=== PATIENT | male | born 1945 | race African-American/Black ===

== ENCOUNTER 2025-02-01 07:33 | Inpatient (IN) | payer MEDICARE, MEDICAID ==
[2025-02-01] VITALS (22 sets, daily range): BP systolic 94–154; BP diastolic 55–131; PULSE 87–137; RESP 18–31; TEMP 36.2512–36.9; O2SAT 84–99
[~2025-02-01] VITALS: Ht 170.2 cm; Wt 67.8 kg
[~2025-02-01 07:33] MED LIST: AMLO10TA80 PO; CLON0.2T PO; FURO20TA4 PO; LOSA100T33 PO
[2025-02-01 08:23] LABS: HEMATOCRIT. 41.7 % (42.0-52.0); HEMOGLOBIN. 13.4 g/dL (14.0-18.0); MEAN PLATELET VOLUME 9.1 fl (7.4-10.4); PLATELET 207 x1000/uL (130-400); RED BLOOD CELL COUNT 4.76 mill/uL (4.7-6.1); RED CELL DISTRIBUTION WIDTH 14.7 % (11.6-14.6)
[2025-02-01] MEDS: SODIUM CHLORIDE 0.9% (SEPSIS BOLUS) IV ONE (08:24)
[2025-02-01] MEDS: PIPERACILLIN/TAZO 3.375G/50ML 50 ML IV ONE ×3 (08:25→20:57)
[2025-02-01 08:36] LABS: INR 1.0
[2025-02-01 08:40] LABS: UREA NITROGEN BLOOD 24 mg/dL (9-23)
[2025-02-01 08:42] LABS: ASPARTATE AMINOTRANSFERASE 16 IU/L (<34); BILIRUBIN DIRECT 0.2 mg/dL (<=3.0); BILIRUBIN TOTAL 0.5 mg/dL (0.1-1.0); PROTEIN TOTAL 8.2 g/dL (6.0-8.3)
[2025-02-01 08:51] LABS: CREATININE 1.7 mg/dL (0.6-1.3)
[2025-02-01] MEDS: VANCOMYCIN 1G PREMIX 200 ML IV ONE (09:08)
[2025-02-01] MEDS: IPRATROPIUM/ALBUTEROL 0.5-3(2.5)MG/3ML NEB HHN SCH (09:10)
[2025-02-01] MEDS: ENOXAPARIN 60MG/0.6ML SYR SUBCUT ONE (09:23)
[2025-02-01] MEDS ORDERED: IPRATROPIUM/ALBUTEROL 0.5-3(2.5)MG/3ML NEB HHN PRN (10:30)
[2025-02-01] MEDS ORDERED: ACETAMINOPHEN 325MG TABLET PO PRN (10:30)
[2025-02-01] MEDS ORDERED: DOCUSATE SODIUM 100MG CAPSULE PO PRN (10:30)
[2025-02-01] MEDS ORDERED: ONDANSETRON HCL 4MG/2ML INJ IV PRN (10:30)
[2025-02-01 10:35] LABS: BAND% 23.0 % (1.0-6.0); EOSINOPHILS % MANUAL 1.0 % (0.0-5.0); LYMPHOCYTES % MANUAL 34.0 % (20.0-50.0); MONOCYTES % MANUAL 21.0 % (2.0-8.0); NEUTROPHILS % MANUAL 21.0 % (45.0-75.0); PLATELET ESTIMATE NORMAL
[2025-02-01] MEDS ORDERED: ENOXAPARIN 60MG/0.6ML SYR SUBCUT NR (11:00)
[2025-02-01] MEDS: METHYLPREDNISOLONE SOD SUCC 125MG/2ML (ACT-O-VIAL) ONE (11:02)
[2025-02-01] MEDS: FUROSEMIDE 40MG/4ML VIAL ONE (11:02)
[2025-02-01] MEDS: FUROSEMIDE 40MG/4ML VIAL IVP NR (11:03)
[2025-02-01] MEDS: METHYLPREDNISOLONE SOD SUCC 125MG/2ML (ACT-O-VIAL) IV NR (11:03)
[2025-02-01 11:09] LABS: BG BASE EXCESS -0.9 mmol/L (-2.0-3.0); BG CARBOXYHEMOGLOBIN 1.1 % (0.5-1.5); BG DEOXYHEMOGLOBIN 14.6 % (0.0-5.0); BG FRACTION INSPIRED OXYGEN 40; BG HCO3 ACT 27.5 mmol/L (21.0-28.0); BG METHEMOGLOBIN 0.3 % (0.5-1.5); BG OXYGEN SATURATION 85.2 % (94.0-98.0); BG OXYHEMOGLOBIN 84.0 % (94.0-98.0); BG PCO2 62.1 mmHg (35.0-48.0); BG PH 7.264 (7.350-7.450); BG PO2 55.1 mmHg (83.0-108.0); BG SAMPLE SITE RIGHT RADIAL; BG TOTAL HEMOGLOBIN 14.1 g/dL (13.5-17.5); BG VENT MODE NASAL CANNULA
[2025-02-01] MEDS: IPRATROPIUM/ALBUTEROL 0.5-3(2.5)MG/3ML NEB ONE (11:32)
[2025-02-01] MEDS: IPRATROPIUM/ALBUTEROL 0.5-3(2.5)MG/3ML NEB HHN NR (11:35)
[2025-02-01] MEDS: BUDESONIDE 0.5MG/2ML NEB ONE (11:38)
[2025-02-01] MEDS: PIPERACILLIN/TAZO 3.375G/50ML 50 ML IV NR (11:43)
[2025-02-01] MEDS: BUDESONIDE 0.5MG/2ML NEB HHN SCH (11:59)
[2025-02-01 13:01] LABS: PHOSPHORUS 4.3 mg/dL (2.5-4.9)
[2025-02-01] MEDS: METHYLPREDNISOLONE SOD SUCC 125MG/2ML (ACT-O-VIAL) IV SCH (14:18)
[2025-02-01 16:12] LABS: CREATINE KINASE MB FRACTION 2.4 ng/mL (0.5-3.6)
[2025-02-01 16:15] LABS: TROPONIN I HIGH SENSITIVITY 68 ng/L (3.0-53)
[2025-02-01] MEDS: PIPERACILLIN/TAZO 3.375G/50ML 50 ML IV SCH (21:43)
[2025-02-01] MEDS: ENOXAPARIN 80MG/0.8ML SYR SUBCUT SCH (21:44)
[2025-02-02] VITALS (16 sets, daily range): BP systolic 115–164; BP diastolic 67–107; PULSE 82–124; RESP 18–27; TEMP 36.6–36.8; O2SAT 91–100
[2025-02-02 01:18] LABS: CREATINE KINASE MB FRACTION 2.7 ng/mL (0.5-3.6); TROPONIN I HIGH SENSITIVITY 42.0 ng/L (3.0-53)
[2025-02-02] MEDS: IPRATROPIUM/ALBUTEROL 0.5-3(2.5)MG/3ML NEB HHN SCH (03:09)
[2025-02-02 07:43] LABS: PLATELET 186 x1000/uL (130-400); RED BLOOD CELL COUNT 4.62 mill/uL (4.7-6.1); RED CELL DISTRIBUTION WIDTH 14.1 % (11.6-14.6)
[2025-02-02 07:44] LABS: CLARITY URINE CLEAR (CLEAR); COLOR URINE YELLOW (YELLOW); GLUCOSE URINE NEGATIVE (NEGATIVE); KETONES URINE NEGATIVE (NEGATIVE); LEUKOCYTE ESTERASE URINE NEGATIVE (NEGATIVE); NITRITE URINE NEGATIVE (NEGATIVE); OCCULT BLOOD URINE NEGATIVE (NEGATIVE); PH URINE 5.5 (4.5-8.0); PROTEIN URINE 1+ (NEGATIVE); SPECIFIC GRAVITY URINE 1.040 (1.005-1.030); UROBILINOGEN URINE 1.0 E.U./dL (0.2-1.0)
[2025-02-02 07:47] LABS: INFLUENZA TYPE A Presumptive Negative (Pres. Neg.); INFLUENZA TYPE B Presumptive Negative (Pres. Neg.)
[2025-02-02 07:48] LABS: RESPIRATORY SYNCYTIAL VIRUS Not Detected (Not Detectd)
[2025-02-02 07:50] LABS: *AMPHETAMINES SCREEN URINE NEGATIVE (NEGATIVE); *BARBITURATES SCREEN URINE NEGATIVE (NEGATIVE); *BENZODIAZEPINES SCREEN URINE NEGATIVE (NEGATIVE); *COCAINE SCREEN URINE NEGATIVE (NEGATIVE); CANNABINOID URINE SCREEN NEGATIVE (NEGATIVE); ECSTASY MDMA SCREEN URINE NEGATIVE (NEGATIVE); METHADONE URINE SCREEN NEGATIVE (NEGATIVE); OPIATES URINE SCREEN PRESUMPTIVE POSITIVE (NEGATIVE); PHENCYCLIDINE URINE SCREEN NEGATIVE (NEGATIVE)
[2025-02-02 08:08] LABS: CREATININE 1.8 mg/dL (0.6-1.3); TRIGLYCERIDE 75 mg/dL (0-150); UREA NITROGEN BLOOD 27 mg/dL (9-23)
[2025-02-02 08:09] LABS: LDL CHOLESTEROL 93 mg/dL (5-100)
[2025-02-02 08:10] LABS: PHOSPHORUS 5.0 mg/dL (2.5-4.9)
[2025-02-02 08:11] LABS: T4 FREE 1.50 ng/dL (0.89-1.76)
[2025-02-02 08:51] LABS: SQUAMOUS EPITHELIAL CELL URINE 1+ /lpf (RARE/1+)
[2025-02-02 08:52] LABS: BACTERIA URINE 2+; RBC URINE NONE SEEN /hpf (0-2); WBC URINE 0-2 /hpf (0-2)
[2025-02-02] MEDS: GUAIFENESIN/DM 600MG/30MG ER TAB 12HR PO SCH (09:09)
[2025-02-02] MEDS: VANCOMYCIN 750MG PREMIX 150 ML IV SCH (09:09)
[2025-02-02] MEDS: FUROSEMIDE 40MG/4ML VIAL IVP SCH (09:09)
[2025-02-02] MEDS: METHYLPREDNISOLONE SOD SUCC 40MG/ML (ACT-O-VIAL) IV SCH (13:09)
[2025-02-02] MEDS: ACETAMINOPHEN 325MG TABLET PO PRN (15:16)
[2025-02-02] MEDS: SODIUM CHLORIDE 0.45% 1,000 ML IV SCH (16:38)
[2025-02-02] MEDS ORDERED: NALOXONE HCL 0.4MG/ML VIAL IV PRN (17:15)
[2025-02-02] MEDS: HYDROCODONE/ACETAMINOPHEN 5/325MG TABLET PO PRN (23:18)
[2025-02-03] VITALS (38 sets, daily range): BP systolic 121–167; BP diastolic 72–130; PULSE 94–130; RESP 17–36; TEMP 36.7–37.2; O2SAT 85–100
[2025-02-03 06:41] LABS: HEMATOCRIT. 41.2 % (42.0-52.0); HEMOGLOBIN. 13.3 g/dL (14.0-18.0); MEAN PLATELET VOLUME 9.7 fl (7.4-10.4); PLATELET 244 x1000/uL (130-400); RED BLOOD CELL COUNT 4.78 mill/uL (4.7-6.1); RED CELL DISTRIBUTION WIDTH 14.2 % (11.6-14.6)
[2025-02-03 06:48] LABS: UREA NITROGEN BLOOD 49.0 mg/dL (9-23)
[2025-02-03 07:23] LABS: CREATININE 2.8 mg/dL (0.6-1.3)
[2025-02-03 14:08] LABS: BG BASE EXCESS 0.0 mmol/L (-2.0-3.0); BG CARBOXYHEMOGLOBIN 0.5 % (0.5-1.5); BG DEOXYHEMOGLOBIN 5.8 % (0.0-5.0); BG FLOW(L/min) 3.00 L/min; BG FRACTION INSPIRED OXYGEN 32; BG HCO3 ACT 26.1 mmol/L (21.0-28.0); BG METHEMOGLOBIN 0.3 % (0.5-1.5); BG OXYGEN SATURATION 94.2 % (94.0-98.0); BG OXYHEMOGLOBIN 93.4 % (94.0-98.0); BG PCO2 47.8 mmHg (35.0-48.0); BG PH 7.355 (7.350-7.450); BG PO2 70.1 mmHg (83.0-108.0); BG SAMPLE SITE LEFT RADIAL; BG TOTAL HEMOGLOBIN 14.1 g/dL (13.5-17.5); BG VENT MODE NASAL CANNULA
[2025-02-03 16:27] LABS: BAND% 15.0 % (1.0-6.0); LYMPHOCYTES % MANUAL 8.0 % (20.0-50.0); METAMYELOCYTES % 2.0 % (0-0); MONOCYTES % MANUAL 7.0 % (2.0-8.0); MYELOCYTES % 2.0 % (0-0); NEUTROPHILS % MANUAL 66.0 % (45.0-75.0); PLATELET ESTIMATE NORMAL
[2025-02-03] MEDS: PIPERACILLIN/TAZO 3.375G/50ML IV SCH (21:22)
[2025-02-03] MEDS: CLONIDINE 0.1MG TABLET PO PRN (21:23)
[2025-02-04] VITALS (8 sets, daily range): BP systolic 148–174; BP diastolic 81–97; PULSE 102–118; RESP 18–20; TEMP 36.4–36.6; O2SAT 93–100
[2025-02-04 08:39] LABS: HEMATOCRIT. 43.3 % (42.0-52.0); HEMOGLOBIN. 14.1 g/dL (14.0-18.0); MEAN PLATELET VOLUME 9.5 fl (7.4-10.4); PLATELET 235 x1000/uL (130-400); RED BLOOD CELL COUNT 5.02 mill/uL (4.7-6.1); RED CELL DISTRIBUTION WIDTH 14.8 % (11.6-14.6)
[2025-02-04 08:47] LABS: CREATININE 2.8 mg/dL (0.6-1.3)
[2025-02-04 08:48] LABS: UREA NITROGEN BLOOD 57.0 mg/dL (9-23)
[2025-02-04] MEDS ORDERED: SODIUM CHLORIDE 0.9% 500 ML IV NR (11:45)
[2025-02-04 16:25] LABS: BAND% 10.0 % (1.0-6.0); LYMPHOCYTES % MANUAL 11.0 % (20.0-50.0); METAMYELOCYTES % 3.0 % (0-0); MONOCYTES % MANUAL 12.0 % (2.0-8.0); MYELOCYTES % 3.0 % (0-0); NEUTROPHILS % MANUAL 61.0 % (45.0-75.0); PLATELET ESTIMATE NORMAL
[2025-02-05] VITALS (8 sets, daily range): BP systolic 143–186; BP diastolic 73–107; PULSE 84–115; RESP 18–22; TEMP 36.4–37.1; O2SAT 94–98
[2025-02-05 08:23] LABS: HEMATOCRIT. 41.7 % (42.0-52.0); HEMOGLOBIN. 13.2 g/dL (14.0-18.0); MEAN PLATELET VOLUME 9.0 fl (7.4-10.4); PLATELET 241 x1000/uL (130-400); RED BLOOD CELL COUNT 4.77 mill/uL (4.7-6.1); RED CELL DISTRIBUTION WIDTH 14.5 % (11.6-14.6)
[2025-02-05 08:36] LABS: UREA NITROGEN BLOOD 42 mg/dL (9-23)
[2025-02-05 08:38] LABS: PHOSPHORUS 2.8 mg/dL (2.5-4.9)
[2025-02-05 08:42] LABS: CREATININE 1.9 mg/dL (0.6-1.3)
[2025-02-05] MEDS: ENOXAPARIN 60MG/0.6ML SYR SUBCUT SCH (08:42)
[2025-02-05] MEDS: LOSARTAN 100 MG TABLET PO SCH (10:47)
[2025-02-05] MEDS: DILTIAZEM HCL 5MG/ML 5ML VIAL IV SCH (10:48)
[2025-02-05] MEDS: AMLODIPINE 10MG TABLET PO SCH (10:48)
[2025-02-05] MEDS ORDERED: DILTIAZEM HCL 30MG TABLET PO SCH (14:00)
[2025-02-05] MEDS: PIPERACILLIN/TAZO 3.375G/50ML IV SCH (14:00)
[2025-02-05 14:49] LABS: BAND% 13.0 % (1.0-6.0); LYMPHOCYTES % MANUAL 16.0 % (20.0-50.0); METAMYELOCYTES % 3.0 % (0-0); MONOCYTES % MANUAL 16.0 % (2.0-8.0); MYELOCYTES % 3.0 % (0-0); NEUTROPHILS % MANUAL 49.0 % (45.0-75.0); PLATELET ESTIMATE NORMAL
[2025-02-05] MEDS: METOPROLOL TARTRATE 25MG TABLET PO SCH (21:35)
[2025-02-06] VITALS: BP 124/84; PULSE 87; RESP 20; TEMP 36.7; O2SAT 97
[2025-02-06 04:00] VITALS: BP 157/92; PULSE 83; RESP 20; TEMP 36; O2SAT 98
[2025-02-06 07:36] LABS: HEMATOCRIT. 43.7 % (42.0-52.0); HEMOGLOBIN. 14.2 g/dL (14.0-18.0); MEAN PLATELET VOLUME 9.5 fl (7.4-10.4); PLATELET 217 x1000/uL (130-400); RED BLOOD CELL COUNT 5.03 mill/uL (4.7-6.1); RED CELL DISTRIBUTION WIDTH 14.8 % (11.6-14.6)
[2025-02-06 07:38] LABS: CREATININE 1.5 mg/dL (0.6-1.3); UREA NITROGEN BLOOD 28.0 mg/dL (9-23)
[2025-02-06 08:00] VITALS: BP 165/96; PULSE 90; RESP 18; TEMP 37.1; O2SAT 95
[2025-02-06] MEDS ORDERED: PROM6.2533 PO (10:15)
[2025-02-06] MEDS ORDERED: IPRA3AMP9 (10:15)
[2025-02-06] MEDS ORDERED: APIX2.5T MT (10:24)
[2025-02-06] MEDS ORDERED: TIOT18CA3 IH (10:24)
[2025-02-06] MEDS ORDERED: METO25TA6 MT (10:24)
[2025-02-06] MEDS ORDERED: ALBU18HF2 IH (10:24)
[2025-02-06 12:00] VITALS: BP 154/92; PULSE 82; RESP 18; TEMP 36.6; O2SAT 97
[2025-02-06 15:04] VITALS: BP 154/92; PULSE 82; RESP 16; TEMP 97.8
[2025-02-06 16:45] VITALS: BP 125/87; PULSE 98; RESP 18; TEMP 37.1; O2SAT 98
[2025-02-06 21:10] LABS: BAND% 5.0 % (1.0-6.0); EOSINOPHILS % MANUAL 3.0 % (0.0-5.0); LYMPHOCYTES % MANUAL 11.0 % (20.0-50.0); MONOCYTES % MANUAL 12.0 % (2.0-8.0); NEUTROPHILS % MANUAL 69.0 % (45.0-75.0); PLATELET ESTIMATE NORMAL
== END 2025-02-06 18:08 | DRG 871 ==
LOC: ER 07:33 → 5EST 10:49 → EDBEDREQ 10:52 → EDBEDREQTM 10:52 → ENRESERV 11:19 → 7WST 02-03 23:50
PROVIDERS: ADMIT Internal Medicine; ATTEND Internal Medicine
PROC: 5A09357 Assistance with Respiratory Ventilation, Less than 24 Consecutive Hours, Continuous Positive Airway Pressure (ICD-10-PCS; principal; 2025-02-02)
PROC: 5A09357 Assistance with Respiratory Ventilation, Less than 24 Consecutive Hours, Continuous Positive Airway Pressure (ICD-10-PCS; 2025-02-03)
DX: A41.9 Sepsis, unspecified organism (principal); J18.9 Pneumonia, unspecified organism; J96.21 Acute and chronic respiratory failure with hypoxia; I50.22 Chronic systolic (congestive) heart failure; J44.1 Chronic obstructive pulmonary disease with (acute) exacerbation; E87.20 Acidosis, unspecified; J44.0 Chronic obstructive pulmonary disease with (acute) lower respiratory infection; I13.0 Hypertensive heart and chronic kidney disease with heart failure and stage 1 through stage 4 chronic kidney disease, or unspecified chronic kidney disease; I48.0 Paroxysmal atrial fibrillation; Z20.822 Contact with and (suspected) exposure to COVID-19; N14.11 Contrast-induced nephropathy; N18.9 Chronic kidney disease, unspecified; T50.8X5A Adverse effect of diagnostic agents, initial encounter; Z95.810 Presence of automatic (implantable) cardiac defibrillator; Z99.3 Dependence on wheelchair; Y92.89 Other specified places as the place of occurrence of the external cause
CPT/HCPCS: 36415; 36600; 71045; 71275; 76770; 80048; 80061; 80076; 80202; 80305; 81003; 82375; 82550; 82553; 82805; 83036; 83605; 83735; 83880; 84100; 84145; 84153; 84439; 84443; 84484; 85025; 85027; 87420; 87426; 87804; 93005; 93970; 94070; 94640; 94660; 94664; 96365; 96367; 98960; 99291; A4606; J1650; J1938; J2543; J2919; J3373; J3490; J7030; J7626